=== PATIENT | male | born 1960 | race African-American/Black ===

== ENCOUNTER 2016-08-26 10:16 | Emergency (ER) | payer MEDICAID ==
[~2016-08-26] VITALS: Ht 175.3 cm; Wt 101.0 kg
[2016-08-26] MEDS ORDERED: COMBIGEN (11:00)
[2016-08-26 11:42] LABS: BASOPHILS % 0.8 % (0.0-2.0); DIFFERENTIAL COMMENT 0; EOSINOPHILS % 3.3 % (0.0-5.0); HEMATOCRIT. 38.2 % (42.0-52.0); HEMOGLOBIN. 12.7 g/dL (14.0-18.0); LYMPHOCYTES % 33.3 % (20.0-50.0); MEAN CORPUSCULAR HEMOGLOBIN 25.5 pg (28.0-32.0); MEAN CORPUSCULAR HGB CONC 33.2 g/dL (31.0-37.0); MEAN CORPUSCULAR VOLUME 77.1 fL (80.0-94.0); MEAN PLATELET VOLUME 7.6 fl (7.4-10.4); MONOCYTES % 9.6 % (2.0-8.0); PLATELET 284 x1000/uL (130-400); RED BLOOD CELL COUNT 4.96 mill/uL (4.7-6.1); RED CELL DISTRIBUTION WIDTH 13.9 % (11.6-14.6); WHITE BLOOD COUNT 4.6 x1000/uL (4.5-11.0)
[2016-08-26 11:51] LABS: ALANINE AMINOTRANSFERASE 31 IU/L (13-61); ALBUMIN 3.7 g/dL (3.4-5.0); ANION GAP 14; CALCIUM 8.9 mg/dL (8.5-10.1); CARBON DIOXIDE 29 mEq/L (21-32); CHLORIDE 102 mEq/L (98-107); ETHANOL BLOOD < 10 mg/dL; INDEX HEMOLYSI 1 (1-3); INDEX ICTERIC 1 (1-4); INDEX LIPEMIC 1 (1-3); UREA NITROGEN BLOOD 11 mg/dL (7-21)
[2016-08-26 11:55] LABS: TROPONIN I < 0.02 ng/mL (0.00-0.04); eGFR > 60 mL/min (>60)
[2016-08-26 12:36] LABS: CLARITY URINE CLEAR (CLEAR); COLOR URINE YELLOW (YELLOW); GLUCOSE URINE NEGATIVE (NEGATIVE); KETONES URINE NEGATIVE (NEGATIVE); LEUKOCYTE ESTERASE URINE NEGATIVE (NEGATIVE); NITRITE URINE NEGATIVE (NEGATIVE); OCCULT BLOOD URINE TRACE (NEGATIVE); PH URINE 5.5 (4.5-8.0); PROTEIN URINE NEGATIVE (NEGATIVE); SPECIFIC GRAVITY URINE 1.019 (1.005-1.030); UROBILINOGEN URINE 0.2 E.U./dL (0.2-1.0)
[2016-08-26 13:00] LABS: BACTERIA URINE TRACE; MUCUS URINE 1+ /lpf (NONE/TRACE)
[2016-08-26 13:01] LABS: RBC URINE 0-2 /hpf (0-2); SQUAMOUS EPITHELIAL CELL URINE RARE /lpf (RARE/1+); WBC URINE 0-2 /hpf (0-2)
[2016-08-26 13:06] LABS: *AMPHETAMINES SCREEN URINE NEGATIVE (NEGATIVE); *BARBITURATES SCREEN URINE NEGATIVE (NEGATIVE); *BENZODIAZEPINES SCREEN URINE NEGATIVE (NEGATIVE); *COCAINE SCREEN URINE NEGATIVE (NEGATIVE); CANNABINOID URINE SCREEN NEGATIVE (NEGATIVE); ECSTASY MDMA SCREEN URINE NEGATIVE (NEGATIVE); METHADONE URINE SCREEN NEGATIVE (NEGATIVE); OPIATES URINE SCREEN NEGATIVE (NEGATIVE); PHENCYCLIDINE URINE SCREEN NEGATIVE (NEGATIVE)
[2016-08-26] MEDS ORDERED: MECLIZINE 12.5MG TABLET PO NR (13:15)
[2016-08-26 13:43] VITALS: BP 120/88
== END 2016-08-26 14:14 | disposition home or self-care (01) ==
LOC: ER 11:48
DX: R53.1 Weakness (principal); R42 Dizziness and giddiness; D50.9 Iron deficiency anemia, unspecified; H40.9 Unspecified glaucoma
CPT/HCPCS: 36415; 70450; 80053; 80305; 81001; 82962; 84484; 85025; 93005; 99285; G0482; Z7610; J8597

== ENCOUNTER 2016-10-13 23:37 | Emergency (ER) | payer MEDICAID ==
[~2016-10-13] VITALS: Ht 175.3 cm; Wt 105.0 kg
[~2016-10-13 23:37] MED LIST: COMBIGEN
[2016-10-14 08:34] VITALS: BP 142/78
== END 2016-10-14 08:36 | disposition home or self-care (01) ==
LOC: ER 23:37
DX: K04.7 Periapical abscess without sinus (principal)
CPT/HCPCS: 99283

== ENCOUNTER 2020-08-24 05:30 | Emergency (ER) | payer MEDICAID ==
[~2020-08-24] VITALS: Ht 175.3 cm; Wt 100.0 kg
[2020-08-24] MEDS ORDERED: IBUP-2028 PO (08:39)
[2020-08-24 08:57] VITALS: BP 134/82
== END 2020-08-24 09:05 | disposition home or self-care (01) ==
LOC: ER 05:30
DX: S86.812A Strain of other muscle(s) and tendon(s) at lower leg level, left leg, initial encounter (principal); X58.XXXA Exposure to other specified factors, initial encounter; Y93.9 Activity, unspecified; Y92.9 Unspecified place or not applicable; Z98.890 Other specified postprocedural states
CPT/HCPCS: 73590; 93971; 99285; Z7610